=== PATIENT | female | born 1990 | race Caucasian/White ===

== ENCOUNTER 2018-11-22 11:02 | Outpatient (CLI) | payer BC ==
--- NOTE | 2018-11-22 13:31 | ULT ---
PELVIC SONOGRAM: HISTORY: Pelvic pain. TECHNIQUE: Transabdominal and transvaginal imaging with duplex evaluation. FINDINGS: The urinary bladder is unremarkable. The uterus has a heterogeneous echotexture and is 7.1 cm. The endometrium is 0.7 cm. No free fluid. The right ovary is 3.6 cm and the left is 4.3 cm. Each contains follicles and demonstrates good colo r and spectral Doppler flow. IMPRESSION: Normal pelvic sonogram. POS: [facility]
== END 2018-11-22 11:03 | disposition home or self-care (01) ==
LOC: NAV ULT 11:02
PROVIDERS: ATTEND Nurse Practitioner Adult Health
DX: R10.2 Pelvic and perineal pain (principal)
CPT/HCPCS: 76856

== ENCOUNTER 2019-03-13 02:14 | Emergency (ER) | payer BC ==
[2019-03-13 02:35] LABS: Pregnancy Test - Urine (BHCG) Negative (Negative); Pregu Control Background? CLEAR/WHITE (CLR/WHITE); Pregu Control Bar Appear? YES (CONTROL BAR); Specific Gravity 1.022 (1.002-1.036)
[2019-03-13] MEDS ORDERED: Ketorolac Tromethamine 60 MG/2 ML VIAL ONE (03:01)
--- NOTE | 2019-03-13 07:42 | RAD ---
3 views right shoulder: 03/13/2019 COMPARISON: None HISTORY: Pain FINDINGS: No widening of the acromioclavicular or coracoclavicular interspace. No displaced fracture or evidence of dislocation. IMPRESSION: No acute findings.
== END 2019-03-13 03:23 | disposition home or self-care (01) ==
LOC: NAV ERS 02:14
DX: S43.401A Unspecified sprain of right shoulder joint, initial encounter (principal); X50.1XXA Overexertion from prolonged static or awkward postures, initial encounter
CPT/HCPCS: 81025; 96372; J1885

== ENCOUNTER 2024-09-19 10:02 | Outpatient (CLI) | payer OTHER | END 2024-09-19 10:03 | disposition home or self-care (01) | LOC: NAV RAD 10:02 | PROVIDERS: ATTEND Student in an Organized Health Care Education/Training Program | DX: M25.511 Pain in right shoulder (principal); M25.811 Other specified joint disorders, right shoulder ==